=== PATIENT | male | born 1985 | race Hispanic/Latino ===

== ENCOUNTER 2017-11-08 18:18 | Emergency (ER) | payer SELFPAY ==
[2017-11-08 18:35] LABS: APPEARANCE,URINE Clear (CLEAR); BILIRUBIN,URINE Small (NEGATIVE); COLOR,URINE Dark Yellow (YELLOW); GLUCOSE, URINE (UA) Negative (NEGATIVE); KETONES,URINE Trace mg/dL (NEGATIVE); LEUKOCYTE ESTERASE ,URINE Trace (NEGATIVE); NITRATE,URINE Negative (NEGATIVE); OCCULT BLOOD,URINE Small (NEGATIVE); PROTEIN,URINE POS 1+ (NEGATIVE)
[2017-11-08 18:42] LABS: AMPHET/METH SCREEN,URINE NEGATIVE (NEGATIVE); BARBITURATE SCREEN, URINE NEGATIVE (NEGATIVE); BENZODIAZEPINES SCREEN,URINE NEGATIVE (NEGATIVE); CANNABINOID SCREEN,URINE NEGATIVE (NEGATIVE); COCAINE SCREEN,URINE NEGATIVE (NEGATIVE); OPIATE SCREEN,URINE NEGATIVE (NEGATIVE); PHENCYCLIDINE SCREEN,URINE NEGATIVE (NEGATIVE)
[2017-11-08 18:56] LABS: BASOPHILS % (AUTO) 0.5 % (0.0-5.0); HEMATOCRIT 43.6 % (42-54); LYMPHOCYTES % (AUTO) 28.8 % (21.0-51.0); MEAN CORPUSCULAR HEMOGLOBIN 31.8 pg (27.0-33.0); MEAN CORPUSCULAR HGB CONC 36.2 g/dL (32.0-36.0); MEAN CORPUSCULAR VOLUME 87.9 fL (79-99); MONOCYTES % (AUTO) 3.3 % (3.0-13.0); NEUTROPHILS % (AUTO) 67.4 % (40.0-77.0); PLATELET COUNT (AUTO) 131 K/uL (130-400); RED BLOOD CELL COUNT(AUTO) 4.96 MIL/uL (4.50-6.20); RED CELL DISTRIBUTION WIDTH 13.3 % (11.0-15.5); WHITE BLOOD COUNT (AUTO) 4.9 K/uL (4.8-10.8)
[2017-11-08 19:06] LABS: CARBON DIOXIDE 25 mmol/L (21-32); CHLORIDE 100 mmol/L (101-111); CREATININE 1.1 mg/dL (0.5-1.5); GLOMERULAR FILTR. RATE CALC 82 mL/min (>60); GLUCOSE,RANDOM 103 mg/dL (70-105); POTASSIUM 3.5 mmol/L (3.5-5.1); SODIUM SERUM 135 mmol/L (136-145); UREA NITROGEN, BLOOD 13 mg/dL (7-18)
[2017-11-08 19:19] LABS: ALANINE AMINOTRANSFERASE 134 U/L (12-78); ALBUMIN 3.9 g/dL (3.5-5.0); ASPARTATE AMINOTRANSFERASE 153 U/L (10-37); BILIRUBIN,TOTAL 0.8 mg/dL (0.2-1.0); CREATINE KINASE MB < 0.5 ng/mL (0.5-3.6); CREATINE KINASE, TOTAL 142 U/L (21-232); TOTAL PROTEIN, SERUM 7.9 g/dL (6.0-8.3)
[2017-11-08 19:28] LABS: BACTERIA,URINE Few /HPF (None Seen); MUCUS,URINE Rare LPF (None Seen); SQUAMOUS EPITHELIAL CELL,UR 0-2 /HPF (0-2); WBC,URINE 0-1 /HPF (0-1)
[2017-11-08] MEDS ORDERED: ONDANSETRON HCL 4 MG/2 ML VIAL ONE (19:51)
[2017-11-08] MEDS ORDERED: ACETAMINOPHEN EXTRA STRENGTH 500 MG TABLET ONE (21:05)
== END 2017-11-08 21:14 | disposition home or self-care (01) ==
LOC: EDH 18:18
DX: A08.4 Viral intestinal infection, unspecified (principal)
CPT/HCPCS: 36415; 71045; 80053; 80305; 81001; 82550; 82553; 83605; 84484; 85025; 87040; 87804 ×2; 93005; 96361; 96374; 99285; J2405

== ENCOUNTER 2020-09-20 10:33 | Observation (INO) | payer OTHER ==
[~2020-09-20] VITALS: Ht 165.1 cm; Wt 65.8 kg
[2020-09-20] MEDS ORDERED: ACETAMINOPHEN EXTRA STRENGTH 500 MG TABLET ONE (11:02)
[2020-09-20 11:05] LABS: BASOPHILS % (AUTO) 0.2 % (0.0-5.0); EOSINOPHILS % (AUTO) 1.2 % (0.0-8.0); HEMATOCRIT 46.2 % (42-54); LYMPHOCYTES % (AUTO) 28.3 % (21.0-51.0); MEAN CORPUSCULAR HEMOGLOBIN 31.5 pg (27.0-33.0); MEAN CORPUSCULAR HGB CONC 35.7 g/dL (32.0-36.0); MEAN CORPUSCULAR VOLUME 88.3 fL (79-99); MONOCYTES % (AUTO) 9.5 % (3.0-13.0); NEUTROPHILS % (AUTO) 60.4 % (40.0-77.0); PLATELET COUNT (AUTO) 130 K/uL (130-400); RED BLOOD CELL COUNT(AUTO) 5.23 MIL/uL (4.50-6.20); RED CELL DISTRIBUTION WIDTH 12.3 % (11.0-15.5); WHITE BLOOD COUNT (AUTO) 5.1 K/uL (4.8-10.8)
[2020-09-20 11:08] LABS: CREATININE 1.1 mg/dL (0.5-1.5); POTASSIUM 3.4 mmol/L (3.5-5.1)
[2020-09-20 11:13] LABS: ALBUMIN 3.9 g/dL (3.5-5.0); BILIRUBIN,TOTAL 0.5 mg/dL (0.2-1.0); TOTAL PROTEIN, SERUM 7.7 g/dL (6.0-8.3)
[2020-09-20 11:41] LABS: INR 1.07 (0.85-1.15); PROTHROMBIN TIME 11.6 SEC (9.6-11.6)
[2020-09-20 11:42] LABS: PARTIAL THROMBOPLASTIN TIME 31.1 SEC (26.3-35.5)
[2020-09-20] MEDS ORDERED: CEFTRIAXONE SODIUM 1 GM ONE (12:50)
[2020-09-20] MEDS ORDERED: ONDANSETRON HCL 4 MG/2 ML VIAL ONE (12:50)
[2020-09-20] MEDS ORDERED: ALBUTEROL INHALER 90MCG/INH IH ONE (12:50)
[2020-09-20] MEDS ORDERED: AZITHROMYCIN 250 MG TABLET PO ONE (12:51)
[2020-09-20 13:02] LABS: ABG BASE EXCESS 1.4 mmol/L (-2.0-3.0); ABG HCO3 24.9 mmol/L (21.0-28.0); ABG PCO2 36 mmHg (35-48)
[2020-09-20] MEDS ORDERED: ONDANSETRON HCL 4 MG/2 ML VIAL IV PRN (21:00)
[2020-09-20] MEDS ORDERED: ACETAMINOPHEN 325 MG TAB PO PRN ×2 (21:00)
[2020-09-20] MEDS ORDERED: DEXAMETHASONE SOD PHOSPHATE 4 MG/ML 1ML VIAL IVP SCH (21:00)
[2020-09-20] MEDS ORDERED: ERGOCALCIFEROL (VITAMIN D2) 50,000 UNIT CAPSULE PO SCH (21:00)
[2020-09-21] MEDS ORDERED: ERGOCALCIFEROL (VITAMIN D2) 50,000 UNIT CAPSULE ONE (00:38)
[2020-09-21] MEDS ORDERED: DEXAMETHASONE SOD PHOSPHATE 10MG/ML 1ML VIAL ONE (00:38)
[2020-09-21] MEDS ORDERED: DOXYCYCLINE 100MG+NS 250ML 250 ML IV ONE (00:39)
[2020-09-21] MEDS ORDERED: CEFTRIAXONE SODIUM 1 GM ONE (00:39)
[2020-09-21] MEDS ORDERED: ACETAMINOPHEN 325 MG TAB ONE (01:07)
[2020-09-21] MEDS ORDERED: SODIUM CHLORIDE 0.9% 100 ML IV ONE (05:08)
[2020-09-21] MEDS: DOXYCYCLINE 100MG+NS 250ML IV SCH ×2 (05:30→09:28)
[2020-09-21] MEDS: FAMOTIDINE/PF 20 MG/2 ML VIAL IV SCH ×2 (05:30→09:28)
[2020-09-21] MEDS: CEFTRIAXONE SODIUM 1 GM IVP SCH ×2 (05:30→09:29)
[2020-09-21 05:45] VITALS: BP 112/73
[2020-09-21 06:36] LABS: HEMATOCRIT 47.5 % (42-54); LYMPHOCYTES % (AUTO) 35.9 % (21.0-51.0); MEAN CORPUSCULAR HEMOGLOBIN 31.4 pg (27.0-33.0); MEAN CORPUSCULAR HGB CONC 34.7 g/dL (32.0-36.0); MEAN CORPUSCULAR VOLUME 90.3 fL (79-99); MONOCYTES % (AUTO) 3.5 % (3.0-13.0); NEUTROPHILS % (AUTO) 60.6 % (40.0-77.0); PLATELET COUNT (AUTO) 120 K/uL (130-400); RED BLOOD CELL COUNT(AUTO) 5.26 MIL/uL (4.50-6.20); RED CELL DISTRIBUTION WIDTH 12.1 % (11.0-15.5); WHITE BLOOD COUNT (AUTO) 2.6 K/uL (4.8-10.8)
[2020-09-21 06:52] LABS: BILIRUBIN,TOTAL 0.4 mg/dL (0.2-1.0); CREATININE 1.2 mg/dL (0.5-1.5); CRP QUANTITATIVE 3.3 mg/L (0.00-9.0); POTASSIUM 4.5 mmol/L (3.5-5.1); TOTAL PROTEIN, SERUM 8.2 g/dL (6.0-8.3)
[2020-09-21 07:39] LABS: LYMPHOCYTES % (MANUAL) 36 % (22-44); MONOCYTES % (MANUAL) 3 % (2-9); SEGMENTED NEUTROPHILS % 61 % (40-70)
[2020-09-21 07:40] LABS: MAN.DIFF COMMENT-IMPRESSION MANUAL DIFFERENTIAL; PLATELET MORPHOLOGY COMMENT SLIGHTLY DECREASED
[2020-09-21 08:00] VITALS: BP 110/62
[2020-09-21] MEDS ORDERED: FLUTICASONE PROPIONATE 50MCG/SPRAY 16 GM BOTTLE EN SCH (09:00)
[2020-09-21] MEDS ORDERED: ASCORBIC ACID 500 MG TAB PO SCH (09:00)
[2020-09-21] MEDS ORDERED: ZINC SULFATE 220 CAPSULE PO SCH (09:00)
[2020-09-21] MEDS ORDERED: ENOXAPARIN SODIUM 40 MG/0.4 ML SYRINGE SQ SCH (09:00)
[2020-09-21 12:00] VITALS: BP 102/68
[2020-09-21] MEDS ORDERED: ALBU8.5H8 IH (14:28)
[2020-09-21] MEDS ORDERED: DEXA4TAB PO (14:28)
[2020-09-21] MEDS ORDERED: DOXY100T2 PO (14:28)
== END 2020-09-21 17:00 | disposition home or self-care (01) ==
LOC: EDH 10:33 → EDHIP 10:34 → 2AH 09-21 05:50
PROVIDERS: ADMIT Internal Medicine; ATTEND Internal Medicine
DX: U07.1 COVID-19 (principal); J12.82 Pneumonia due to coronavirus disease 2019; J96.01 Acute respiratory failure with hypoxia; E87.6 Hypokalemia; Z87.891 Personal history of nicotine dependence
CPT/HCPCS: 36415 ×2; 36430; 36600; 71045 ×2; 80053 ×2; 82550 ×2; 82803; 83605; 84145; 84484; 85025 ×2; 85378 ×2; 85610; 85730; 86140; 86850; 86900; 86901; 86927; 87040 ×2; 87426; 93005; 94760; 96372; 96374; 96375; 99285; G0378 ×19; J0696 ×3; J1100; J1650; J2405; J3490 ×3; P9017

== ENCOUNTER 2021-02-03 13:44 | Emergency (ER) | payer OTHER, SELFPAY ==
[~2021-02-03] VITALS: Ht 165.1 cm; Wt 70.3 kg
[~2021-02-03 13:44] MED LIST: ALBU8.5H8 IH; DEXA4TAB PO; DOXY100T2 PO
[2021-02-03 14:04] VITALS: BP 127/73
[2021-02-03] MEDS ORDERED: KETOROLAC 30MG VIAL (30MG/ML) IM STA (14:57)
[2021-02-03] MEDS ORDERED: HYDROCODONE/ACETAMINOPHEN 5/325 MG TAB PO STA (14:57)
[2021-02-03] MEDS ORDERED: KETOROLAC 30MG VIAL (30MG/ML) ONE (14:58)
[2021-02-03] MEDS ORDERED: IBUP-2088 PO (15:35)
[2021-02-03 15:43] VITALS: BP 120/72
== END 2021-02-03 15:48 | disposition home or self-care (01) ==
LOC: EDH 13:44
DX: R07.89 Other chest pain (principal); Z48.02 Encounter for removal of sutures; Z79.1 Long term (current) use of non-steroidal anti-inflammatories (NSAID); Z79.52 Long term (current) use of systemic steroids; Z86.16 Personal history of COVID-19; Z79.899 Other long term (current) drug therapy
CPT/HCPCS: 71111; 96372; 99283; J1885

== ENCOUNTER 2022-04-13 08:02 | Emergency (ER) | payer OTHER ==
[~2022-04-13] VITALS: Ht 165.1 cm; Wt 74.8 kg
[~2022-04-13 08:02] MED LIST changes: +IBUP-2088 PO
[2022-04-13 08:33] LABS: BASOPHILS % (AUTO) 0.3 % (0.0-5.0); EOSINOPHILS % (AUTO) 3.8 % (0.0-8.0); LYMPHOCYTES % (AUTO) 36.9 % (21.0-51.0); MEAN CORPUSCULAR HEMOGLOBIN 31.6 pg (27.0-33.0); MEAN CORPUSCULAR HGB CONC 36.3 g/dL (32.0-36.0); MEAN CORPUSCULAR VOLUME 87.1 fL (79-99); MONOCYTES % (AUTO) 5.5 % (3.0-13.0); NEUTROPHILS % (AUTO) 52.6 % (40.0-77.0); PLATELET COUNT (AUTO) 175 K/uL (130-400); RED BLOOD CELL COUNT(AUTO) 5.28 MIL/uL (4.50-6.20); RED CELL DISTRIBUTION WIDTH 12.5 % (11.0-15.5); WHITE BLOOD COUNT (AUTO) 7.8 K/uL (4.8-10.8)
[2022-04-13 08:40] LABS: CREATININE 0.9 mg/dL (0.5-1.5); POTASSIUM 3.5 mmol/L (3.5-5.1)
[2022-04-13 08:47] LABS: ALBUMIN 4.1 g/dL (3.5-5.0); TOTAL PROTEIN, SERUM 7.9 g/dL (6.0-8.3)
[2022-04-13] MEDS ORDERED: DiphenhydrAMINE HCL 50 MG/ML VIAL ONE (08:52)
[2022-04-13] MEDS ORDERED: METOCLOPRAMIDE 10 MG/2 ML VIAL ONE (08:52)
[2022-04-13] MEDS ORDERED: KETOROLAC 30MG VIAL (30MG/ML) ONE (08:52)
[2022-04-13] MEDS ORDERED: METOCLOPRAMIDE 10 MG/2 ML VIAL IVP ONE (09:00)
[2022-04-13] MEDS ORDERED: KETOROLAC 30MG VIAL (30MG/ML) IVP ONE (09:00)
[2022-04-13] MEDS ORDERED: DiphenhydrAMINE HCL 50 MG/ML VIAL IV ONE (09:00)
[2022-04-13 09:12] LABS: APPEARANCE,URINE CLEAR (CLEAR); BILIRUBIN,URINE NEGATIVE (NEGATIVE); COLOR,URINE COLORLESS (YELLOW); GLUCOSE, URINE (UA) NEGATIVE (NEGATIVE); KETONES,URINE NEGATIVE (NEGATIVE); LEUKOCYTE ESTERASE ,URINE NEGATIVE Leu/uL (NEGATIVE); NITRATE,URINE NEGATIVE (NEGATIVE); OCCULT BLOOD,URINE NEGATIVE (NEGATIVE); PROTEIN,URINE NEGATIVE (NEGATIVE); UROBILINOGEN,URINE 0.2 mg/dL (0.2-1.0)
[2022-04-13] MEDS ORDERED: DEXAMETHASONE 4 MG TAB PO SCH (11:00)
[2022-04-13] MEDS ORDERED: PHARMACY COMMUNICATION MISC SCH (11:00)
[2022-04-13] MEDS ORDERED: VALPROIC ACID (AS SODIUM SALT) 500 MG in 0.9%NACL 100ML 100 ML IV SCH (11:30)
[2022-04-13 12:03] VITALS: BP 103/66
[2022-04-13] MEDS ORDERED: IBUP-1493 PO (12:51)
== END 2022-04-13 13:20 | disposition home or self-care (01) ==
LOC: EDH 08:02
DX: G43.909 Migraine, unspecified, not intractable, without status migrainosus (principal); Z79.52 Long term (current) use of systemic steroids; Z79.1 Long term (current) use of non-steroidal anti-inflammatories (NSAID)
CPT/HCPCS: 99285; 96365; 96375; 70450; 84484; 80053; 85025; 81003; 36415; 93005; J1200; J1885; J8540; J2765; 99291

== ENCOUNTER 2022-12-09 15:15 | Emergency (ER) | payer MEDICAID, OTHER ==
[~2022-12-09] VITALS: Ht 162.6 cm; Wt 71.2 kg
[~2022-12-09 15:15] MED LIST changes: +IBUP-1493 PO
[2022-12-09 15:57] LABS: APPEARANCE,URINE CLEAR (CLEAR); BILIRUBIN,URINE NEGATIVE (NEGATIVE); COLOR,URINE YELLOW (YELLOW); GLUCOSE, URINE (UA) NEGATIVE (NEGATIVE); KETONES,URINE NEGATIVE (NEGATIVE); LEUKOCYTE ESTERASE ,URINE NEGATIVE Leu/uL (NEGATIVE); NITRATE,URINE NEGATIVE (NEGATIVE); OCCULT BLOOD,URINE NEGATIVE (NEGATIVE); PROTEIN,URINE 20 mg/dL (NEGATIVE); UROBILINOGEN,URINE 0.2 mg/dL (0.2-1.0)
[2022-12-09 16:08] LABS: BASOPHILS % (AUTO) 0.3 % (0.0-5.0); EOSINOPHILS % (AUTO) 0.4 % (0.0-8.0); HEMATOCRIT 43.6 % (42-54); LYMPHOCYTES % (AUTO) 20.4 % (21.0-51.0); MEAN CORPUSCULAR HEMOGLOBIN 31.5 pg (27.0-33.0); MEAN CORPUSCULAR HGB CONC 35.3 g/dL (32.0-36.0); MEAN CORPUSCULAR VOLUME 89.2 fL (79-99); MONOCYTES % (AUTO) 5.7 % (3.0-13.0); NEUTROPHILS % (AUTO) 72.3 % (40.0-77.0); PLATELET COUNT (AUTO) 187 K/uL (130-400); RED BLOOD CELL COUNT(AUTO) 4.89 MIL/uL (4.50-6.20); WHITE BLOOD COUNT (AUTO) 12.8 K/uL (4.8-10.8)
[2022-12-09 16:16] LABS: CREATININE 1.2 mg/dL (0.5-1.5); POTASSIUM 4.1 mmol/L (3.5-5.1)
[2022-12-09 16:21] LABS: ALBUMIN 4.2 g/dL (3.5-5.0); TOTAL PROTEIN, SERUM 8.2 g/dL (6.0-8.3)
[2022-12-09 16:22] LABS: BACTERIA,URINE RARE /HPF (None Seen); MUCUS,URINE RARE LPF (None Seen)
[2022-12-09] MEDS ORDERED: METOCLOPRAMIDE 10 MG/2 ML VIAL IVP ONE (17:00)
[2022-12-09] MEDS ORDERED: KETOROLAC 30MG VIAL (30MG/ML) IVP ONE (17:00)
[2022-12-09] MEDS ORDERED: FAMOTIDINE 20MG VIAL IV ONE ×2 (17:00→17:02)
[2022-12-09] MEDS ORDERED: METOCLOPRAMIDE 10 MG/2 ML VIAL ONE (17:01)
[2022-12-09] MEDS ORDERED: KETOROLAC 30MG VIAL (30MG/ML) ONE (17:01)
[2022-12-09] MEDS ORDERED: MORPHINE 4 MG SYG ONE (17:03)
[2022-12-09] MEDS ORDERED: METO-296 PO (17:12)
[2022-12-09] MEDS ORDERED: FAMO-136 PO (17:12)
[2022-12-09] MEDS ORDERED: TAMS-1 PO (17:12)
[2022-12-09] MEDS ORDERED: KETO10 PO (17:12)
[2022-12-09] MEDS ORDERED: TAMSULOSIN HCL 0.4 MG CAP.ER.24H PO ONE (18:00)
[2022-12-09] MEDS ORDERED: 0.9%NACL 1000ML 1,000 ML IV ONE (18:00)
[2022-12-09 18:09] VITALS: BP 132/78
== END 2022-12-09 18:10 | disposition home or self-care (01) ==
LOC: EDH 15:15
DX: N20.0 Calculus of kidney (principal); Z79.899 Other long term (current) drug therapy; Z98.890 Other specified postprocedural states
CPT/HCPCS: 99285; 74176; 96374; 96375; 80053; 83690; 85025; 81001; 36415; J3490; J2270; J1885; J2765